=== PATIENT | female | born 1990 | race Two or more races ===

== ENCOUNTER 2019-03-16 14:11 | Outpatient (CLI) | payer BC | END 2019-03-16 14:19 | disposition home or self-care (01) | LOC: LAB 14:11 | DX: R59.9 Enlarged lymph nodes, unspecified (principal) ==

== ENCOUNTER → 2019-03-16 | Outpatient (CLI) | payer BC | END | disposition home or self-care (01) | LOC: RAD 14:44 | DX: R59.9 Enlarged lymph nodes, unspecified (principal) ==

== ENCOUNTER 2019-03-19 08:41 | Outpatient (CLI) | payer BC | END 2019-03-19 09:00 | disposition home or self-care (01) | LOC: TOM 08:41 | DX: C85.10 Unspecified B-cell lymphoma, unspecified site (principal) ==